=== PATIENT | female | born 1990 | race Caucasian/White ===

== ENCOUNTER 2018-06-10 20:11 | Emergency (ER) | payer BC ==
[2018-06-10 20:29] VITALS: PULSE 84; O2SAT 100
--- NOTE | 2018-06-10 20:41 | ERPHSYRPT ---
- History of Present Illness Time Seen by Provider: 06/10/18 20:36 Source: patient Exam Limitations: no limitations Patient Subjective Stated Complaint: pt states she was stung by a wasp on left popliteal; states her left leg is tingling and numb feeling, also painful and swelling. Triage Nursing Assessment: pt a&o x3; skin p, w, & d; ambulated to room per self ; minor edema and redness noted; no other distress at this time. Physician History: pt stung by wasp at 2 pm and kept being painful with tingling at site; no shortness of breath or known allergy to beesting; lungs are clear without wheezes and throat is clear and swallowing ok ; no urticaria - localized reaction about 10 cm left thigh neurovasc intact; no stinger found - tape / scrape used . discussed epipen and pt will await testing with PCP to decideand hold off for now as no sign of actual allergic reaction. Timing/Duration: today Location: other (left thigh) Possible Causes: insect bite Modifying Factors: Improves With: antihistamine Allergies/Adverse Reactions: No Known Drug Allergies Allergy (Verified 06/10/18 20:28) Home Medications: Norgestimate-Ethinyl Estradiol [Tri-Sprintec] 1 tab PO DAILY 06/10/18 [History] Hx Tetanus, Diphtheria Vaccination/Date Given: Yes Hx Influenza Vaccination/Date Given: No Hx Pneumococcal Vaccination/Date Given: Yes Immunizations Up to Date: Yes - Review of Systems Constitutional: No Fever, No Chills Eyes: No Symptoms Ears, Nose, & Throat: No Symptoms Respiratory: No Cough, No Dyspnea Cardiac: No Chest Pain, No Edema, No Syncope Abdominal/Gastrointestinal: No Abdominal Pain, No Nausea, No Vomiting, No Diarrhea Genitourinary Symptoms: No Dysuria Musculoskeletal: No Back Pain, No Neck Pain Skin: No Rash Neurological: No Dizziness, No Focal Weakness, No Sensory Changes Psychological: No Symptoms Endocrine: No Symptoms Hematologic/Lymphatic: No Symptoms Immunological/Allergic: No Symptoms All Other Systems: Reviewed and Negative - Past Medical History Pertinent Past Medical History: No - Past Surgical History Past Surgical History: No - Social History Smoking Status: Current every day smoker How long have you smoked: 10 Exposure to second hand smoke: No Drug Use: none Patient Lives Alone: No - Female History Hx Last Menstrual Period: 3 weeks ago Hx Now: No - Nursing Vital Signs Nursing Vital Signs: Initial Vital Signs Temperature 98.4 F 06/10/18 20:17 Pulse Rate 84 06/10/18 20:17 Respiratory Rate 16 06/10/18 20:17 Blood Pressure 131/82 06/10/18 20:17 O2 Sat by Pulse Oximetry 100 06/10/18 20:17 Pain Scale Pain Intensity 4 - Physical Exam General Appearance: no apparent distress, alert Eye Exam: PERRL/EOMI, eyes nml inspection Ears, Nose, Throat Exam: normal ENT inspection, pharynx normal, moist mucous membranes Neck Exam: normal inspection, non-tender, supple, full range of motion Respiratory Exam: normal breath sounds, lungs clear, airway intact, No respiratory distress, No accessory muscle use, No wheezing, No stridor Cardiovascular Exam: regular rate/rhythm, normal heart sounds Gastrointestinal/Abdomen Exam: soft, mass, No tenderness Pelvic Exam: not done Rectal Exam: not done Back Exam: normal inspection, normal range of motion, No CVA tenderness, No vertebral tenderness, No rash Extremity Exam: normal inspection, normal range of motion Neurologic Exam: alert, oriented x 3, cooperative, normal mood/affect, sensation nml, No motor deficits Skin Exam: normal color, warm, dry, No rash SpO2 Interpretation: normal SpO2: 100 Oxygen Delivery: Room Air - Course Nursing assessment & vital signs reviewed: Yes - Progress Progress: improved, re-examined Counseled pt/family regarding: diagnosis, need for follow-up - Departure Time of Disposition: 20:41 Departure Disposition: Home Clinical Impression: localized beesting reaction Condition: Good Critical Care Time: No Referrals: SABINO ZURITA [Primary Care Provider] - Instructions: Insect Bites and Stings (DC) Additional Instructions: followup with your dr for testing and to consider epi pen if indicated continue benadryl as needed. return meantime if reaction spreads or other concerns, short of breath or trouble swallowing. Prescriptions: Hydrocodone/Acetaminophen [Kirby 5-325 Tablet] 1 each PO Q4-6HPRN PRN #7 tablet MDD 4/day PRN Reason: Pain Methylprednisolone Packet [Medrol Dosepack] 4 mg PO UD #30 packet Mupirocin [Bactroban OINTMENT] 22 gm TP BID #1 tube
[2018-06-10] MEDS ORDERED: DELTASONE 20 MG ONE (20:48)
[2018-06-10] MEDS ORDERED: DELTASONE 10 MG PO ONE (20:48)
[2018-06-10 20:57] VITALS: BP 118/76
== END 2018-06-10 20:54 | disposition home or self-care (01) ==
LOC: ED 20:11
DX: T63.441A Toxic effect of venom of bees, accidental (unintentional), initial encounter (principal)
CPT/HCPCS: 99283; A9270-GY

== ENCOUNTER 2020-11-07 06:40 | Day surgery (SDC) | payer BC ==
[~2020-11-07 06:40] MED LIST: XYLOCAINE 1% HCL 20 ML MDV ONE
[2020-11-07 08:38] VITALS: BP 119/75; PULSE 16; O2SAT 100
--- NOTE | 2020-11-07 09:50 | OP ---
SURGERY DATE/TIME: 11/07/2020 0800 PREOPERATIVE DIAGNOSIS: Left anterior chest wall cyst. POSTOPERATIVE DIAGNOSIS: Left anterior chest wall cyst. PROCEDURE: Excision of chest wall cyst under local. SURGEON: Dr. Mistry. ANESTHESIA: Local. HISTORY: The patient is a 30 year old white female presents now with enlarging cyst on the anterior left chest wall. The patient is concerned about having this removed and we feel it is likely a sebaceous cyst but did not it to get infected so we went ahead and removed it for her. The patient was appraised of the risks of the procedure including the risk of wound infection. The patient verbalized her understanding and desired to have the procedure performed. DESCRIPTION OF PROCEDURE: The patient was prepped and draped in supine position. After the area was prepped and draped in sterile fashion it was anesthetized with lidocaine. The area was excised using elliptical incision through the entire thickness of the dermis. The cyst was then passed off for pathology. The wound edges were then approximated using 3-0 Vicryl suture interrupted stitches to bring the edges together and then 3-0 Dexon suture was then used to approximate the skin edges in interrupted fashion. The sponge, needle and instrument counts were reported as correct at the end of the procedure. The patient was taken back to recovery room in good condition. She has a follow up appointment to see us in seven to ten days for stitch removal.
== END 2020-11-07 08:44 | disposition home or self-care (01) ==
LOC: SDC 06:40
PROVIDERS: ATTEND Family Medicine
DX: L72.11 Pilar cyst (principal)

== ENCOUNTER 2021-02-18 10:07 | Day surgery (SDC) | payer BC ==
[2021-02-18] MEDS ORDERED: Depo-Medrol 40 MG/ML IM ONE (10:08)
[2021-02-18] MEDS ORDERED: Sodium Chloride 0.9(Preservative Free) 10 ML IJ ONE (10:08)
[2021-02-18] MEDS ORDERED: DIPRIVAN 200 MG/20 ML IV ONE ×2 (11:23→11:33)
--- NOTE | 2021-02-18 11:59 | XRAY ---
33 seconds fluoroscopy time in surgery for left L4-S1 transforaminal VEDA.
--- NOTE | 2021-02-18 11:59 | XRAY ---
Indication: Left L4-S1 transforaminal VEDA. Intraoperative fluoroscopy provided for 33 seconds. 4 digital spot images submitted for interpretation demonstrates posterior needle tips projecting of the expected left L4 and L5 nerve roots. Small amount of contrast injected for needle tip placement. Correlate with intraoperative findings/report.
[2021-02-18] MEDS ORDERED: Lactated Ringers 1,000 ML IV ONE (16:31)
== END 2021-02-18 11:57 | disposition home or self-care (01) ==
LOC: SDC-PAIN 10:07
PROVIDERS: ATTEND Psychiatry & Neurology Pain Medicine
DX: M54.16 Radiculopathy, lumbar region (principal); E05.90 Thyrotoxicosis, unspecified without thyrotoxic crisis or storm; F41.8 Other specified anxiety disorders; Z79.899 Other long term (current) drug therapy
CPT/HCPCS: 64483; 64484; 72100; 77003; 84703; J1030; J2704; Q9966

== ENCOUNTER 2023-12-08 11:44 | Day surgery (SDC) | payer BC ==
[2023-12-08] MEDS ORDERED: LIDOCAINE HCL 2% 100 MG/5 ML IJ ONE (11:45)
[2023-12-08 12:03] LABS: HCG URINE TEST NEGATIVE (NEGATIVE)
[2023-12-08] MEDS ORDERED: DIPRIVAN 200 MG/20 ML IV ONE (13:11)
[2023-12-08] MEDS ORDERED: Versed 2 MG/2 ML Injection ONE (13:14)
[2023-12-08] MEDS ORDERED: Lactated Ringers 1,000 ML IV ONE (14:34)
--- NOTE | 2023-12-08 14:48 | XRAY ---
Indication: Left L4-S1 MBB. Intraoperative fluoroscopy provided for 8 seconds. Single digital spot image submitted for interpretation demonstrates posterior needle tips projecting over the expected left L4-S1 nerve roots. Correlate with intraoperative findings/report.
--- NOTE | 2023-12-08 15:10 | XRAY ---
8 seconds of fluoroscopy was used in surgery for a left L4-S1 MBB.
== END 2023-12-08 13:34 | disposition home or self-care (01) ==
LOC: SDC-PAIN 11:44
PROVIDERS: ATTEND Psychiatry & Neurology Pain Medicine
DX: M47.816 Spondylosis without myelopathy or radiculopathy, lumbar region (principal)
CPT/HCPCS: 64493; 64494; 72020; 77002; 81025; J2250; J2704